=== PATIENT | male | born 1930 | race Two or more races ===

== ENCOUNTER 2017-08-23 18:18 | Emergency (ER) | payer MEDICARE ==
[~2017-08-23] VITALS: Ht 180.3 cm; Wt 63.5 kg
--- NOTE | 2017-08-23 19:01 | Emergency Room Report ---
History of Present Illness General Chief Complaint: Syncope Source: Patient Present Illness HPI 87-year-old male with a history of high cholesterol and legal blindness and glaucoma Reports he had a near syncopal episode today after he vomited a salad that he had just eaten He reports using on better now and that he never completely passed out He usually sees his [place] doctors regularly and all has been well in the recent past He denies chest pain shortness of breath recent fevers urinary problems or any other complaint His not having any pain complaints at all right now nor did he ever have abdominal pain or diarrhea He only vomited the one bout and felt very lightheaded afterwards and so was brought in Allergies: Coded Allergies: No Known Allergies (Unverified , 08/23/17) Patient History Past Medical History: see triage record Reviewed Nursing Documentation: PMH: Agreed, PSxH: Agreed Nursing Documentation-PMH Hx Hypertension: Yes - high cholesterol Review of Systems All Other Systems: negative except mentioned in HPI Physical Exam Vital Signs Date Time Temp Pulse Resp B/P (MAP) Pulse Ox O2 Delivery O2 Flow Rate FiO2 08/23/17 18:23 97.9 77 18 164/63 98 Room Air Sp02 EP Interpretation: reviewed, normal General Appearance: no apparent distress, alert, non-toxic Head: normocephalic Eyes: bilateral eye normal inspection, bilateral eye EOMI ENT: normal ENT inspection, hearing grossly normal, normal pharynx, no angioedema, normal voice, moist mucus membranes Neck: normal inspection, full range of motion, supple, supple/symm/no masses Respiratory: chest non-tender, lungs clear, normal breath sounds, chest symmetrical, palpation of chest normal Cardiovascular #1: normal peripheral pulses, regular rate, rhythm Cardiovascular #2: 2+ radial (R), 2+ radial (L) Gastrointestinal: normal inspection, non tender, soft, no mass, no guarding, no rebound Rectal: deferred Genitourinary: normal inspection, no CVA tenderness Musculoskeletal: back normal, gait/station normal, normal range of motion, non- tender, no calf tenderness, other - negative Homans sign bilateral lower extremities Neurologic: alert, responsive, 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, motor strength/tone normal, sensory intact, speech normal Psychiatric: judgement/insight normal, memory normal, mood/affect normal, no suicidal/homicidal ideation Skin: normal color, no rash, warm/dry, normal turgor Lymphatic: no adenopathy Medical Decision Making Reaction to Intervention: Improved Diagnostic Impression: Primary Impression: Syncope ER Course Patient with one episode of vomiting has a soft nontender abdomen and a normal exam Feels better now and has had an unremarkable EKG labs and chest x-ray BP also improved dc home EKG Diagnostic Results Rate: normal Rhythm: NSR ST Segments: no acute changes Rhythm Strip Diag. Results EP Interpretation: yes Rate: 66 Rhythm: NSR Chest X-Ray Diagnostic Results Chest X-Ray Diagnostic Results : Chest X-Ray Ordered: Yes # of Views/Limited/Complete: 1 View Indication: Chest Pain EP Interpretation: Yes PA Xray: Interpretation reviewed Interpretation: no consolidation, no effusion, no pneumothorax, no acute cardiopulmonary disease Impression: No acute disease Electronically Signed by: Blanquita Perry MD Last Vital Signs Date Time Temp Pulse Resp B/P (MAP) Pulse Ox O2 Delivery O2 Flow Rate FiO2 08/23/17 18:23 97.9 77 18 164/63 98 Room Air Status: improved Disposition: HOME, SELF-CARE Condition: Stable BLANQUITA PERRY M.D Aug 23, 2017 19:01
[2017-08-23 19:05] VITALS: BP 164/63
[2017-08-23 19:34] LABS: BASOPHILS % (AUTO) 1.8 % (0.0-2.0); EOSINOPHILS % (AUTO) 2.3 % (0.0-3.0); HEMATOCRIT 44.3 % (42.0-52.0); HEMOGLOBIN 15.1 G/DL (14.2-18.0); LYMPHOCYTES % (AUTO) 31.9 % (20.0-45.0); MEAN CORPUSCULAR VOLUME 92 FL (80-99); MONOCYTES % (AUTO) 11.3 % (1.0-10.0); NEUTROPHILS % (AUTO) 52.8 % (45.0-75.0); PLATELET COUNT 157 K/UL (150-450); RED BLOOD COUNT 4.83 M/UL (4.70-6.10); WHITE BLOOD COUNT 4.7 K/UL (4.8-10.8)
[2017-08-23 19:46] LABS: ANION GAP 8 mmol/L (5-15); BLOOD UREA NITROGEN 19 mg/dL (7-18); CALCIUM 8.9 MG/DL (8.5-10.1); CARBON DIOXIDE 27 MMOL/L (21-32); CHLORIDE 106 MMOL/L (98-107); CREATININE 1.7 MG/DL (0.55-1.30); POTASSIUM 3.6 MMOL/L (3.5-5.1); SODIUM 141 MMOL/L (136-145)
[2017-08-23 19:51] LABS: ALANINE AMINOTRANSFERASE 23 U/L (12-78); ALBUMIN 3.5 G/DL (3.4-5.0); ALBUMIN/GLOBULIN RATIO 1.1 (1.0-2.7); ALKALINE PHOSPHATASE 87 U/L (46-116); ASPARTATE AMINO TRANSFERASE 20 U/L (15-37); BILIRUBIN,TOTAL 0.4 MG/DL (0.2-1.0)
[2017-08-23 20:05] VITALS: BP 124/74
[2017-08-23] MEDS ORDERED: PROAIR HFA8.5 GM INH (20:31)
[2017-08-23] MEDS ORDERED: VITAMIN D1000 UNI1 ORAL (20:31)
[2017-08-23] MEDS ORDERED: ASPIR 8181 MG ORAL (20:31)
[2017-08-23] MEDS ORDERED: COMBIVENT RESPIM4 GM IH (20:31)
[2017-08-23] MEDS ORDERED: BENEFIBER1 EACH ORAL (20:31)
[2017-08-23] MEDS ORDERED: ATORVASTATIN CA10 MG ORAL (20:31)
[2017-08-23] MEDS ORDERED: TAMSULOSIN HCL0.4 MG ORAL (20:31)
[2017-08-23 21:10] VITALS: BP 118/76
[2017-08-23] MEDS ORDERED: ZOFRAN ODT4 MG ORAL (21:12)
[2017-08-23 22:00] VITALS: BP 124/74
--- NOTE | 2017-08-24 09:18 | Diagnostic Imaging Report ---
Indication: Shortness of breath Technique: One view of the chest Comparison: none Findings: No acute infiltrates, effusions, or congestion. Tortuous calcified aorta. Normal heart size. Upper mediastinum unremarkable. Impression: No acute process.
--- NOTE | 2017-08-24 16:35 | Cardiology Report ---
APPROVED REPORT EKG Measurement Heart [id number] Normal sinus rhythm Left axis deviation Low voltage QRS Prolonged QT Abnormal ECG
== END 2017-08-23 22:00 | disposition home or self-care (01) ==
LOC: EDBD 18:18 → EMR 21:39
DX: R55 Syncope and collapse (principal); I10 Essential (primary) hypertension; E78.00 Pure hypercholesterolemia, unspecified
CPT/HCPCS: 36415; 71045; 80053; 84484; 85025; 93005; 96361; 96374; 99284